=== PATIENT | female | born 1990 | race African-American/Black ===

== ENCOUNTER 2019-06-12 00:29 | Inpatient (IN) | payer OTHER ==
[2019-06-10 11:32] LABS: BASOPHILS # (AUTO) 0.1 K/uL (0.00-0.22); BASOPHILS % (AUTO) 0.7 % (0.0-2.0); EOSINOPHILS # (AUTO) 0.1 K/uL (0-0.4); EOSINOPHILS % (AUTO) 0.7 % (0.0-4.0); HEMOGLOBIN 11.7 g/dL (12.0-16.0); LYMPHOCYTES # (AUTO) 1.4 K/uL (2.5-16.5); LYMPHOCYTES % (AUTO) 18.7 % (20.5-51.1); MEAN CORPUSCULAR HEMOGLOBIN 25 pg (27-31); MEAN CORPUSCULAR HGB CONC 33 g/dL (33-37); MEAN CORPUSCULAR VOLUME 76.9 fL (80-94); MONOCYTES # (AUTO) 0.6 K/uL (0.8-1.0); MONOCYTES % (AUTO) 7.6 % (1.7-9.3); NEUTROPHILS # (AUTO) 5.6 K/uL (1.8-7.7); NEUTROPHILS % (AUTO) 72.3 % (42.2-75.2); PLATELET COUNT (AUTO) 280 K/uL (140-450); RED BLOOD CELL COUNT(AUTO) 4.68 MIL/uL (4.20-5.40); RED CELL DISTRIBUTION WIDTH 16.8 % (11.6-13.7); WHITE BLOOD COUNT (AUTO) 7.7 K/uL (4.8-10.8)
[~2019-06-12] VITALS: Ht 167.6 cm; Wt 117.9 kg
[2019-06-12] MEDS ORDERED: LACTATED RINGERS 1,000 ML IV SCH (06:27)
[2019-06-12 07:35] VITALS: BP 118/69
[2019-06-12] MEDS ORDERED: CITRIC ACID/SODIUM CITRATE 30 ML UDC ONE (07:52)
[2019-06-12] MEDS ORDERED: CITRIC ACID/SODIUM CITRATE 30 ML UDC PO SCH (08:00)
--- NOTE | 2019-06-12 08:16 | NUR ---
PATIENT HAS BEEN SCREENED AND CATEGORIZED LOW NUTRITION RISK. PATIENT WILL BE SEEN WITHIN 7 DAYS OF ADMISSION. 06/18/[address]
[2019-06-12] MEDS ORDERED: MORPHINE PRES FREE 10 MG/10 ML AMP IV ONE (08:39)
[2019-06-12] MEDS ORDERED: fentaNYL 0.05 MG/ML VIAL ONE (08:39)
[2019-06-12] MEDS ORDERED: METHYLERGONOVINE 0.2 MG/ML AMP IM PRN (09:00)
[2019-06-12] MEDS ORDERED: IBUPROFEN 800 MG TAB PO PRN (09:00)
[2019-06-12] MEDS ORDERED: HYDROcodone/APAP 5/325 MG 1 TAB TAB PO PRN (09:00)
[2019-06-12] MEDS ORDERED: HYDROmorphone 1 MG/ML AMP IVP PRN (09:00)
[2019-06-12] MEDS ORDERED: KETOROLAC 30 MG/ML VIAL IVP PRN ×2 (09:00→09:30)
[2019-06-12] MEDS: BISACODYL 5 MG TABEC PO SCH (09:00)
[2019-06-12] MEDS: CALCIUM POLYCARBOPHIL 625 MG TAB PO SCH ×2 (09:00→13:00)
[2019-06-12] MEDS ORDERED: oxyCODONE/APAP 5/325 MG 1 TAB TAB PO PRN (09:00)
[2019-06-12] MEDS ORDERED: MAGNESIUM CITRATE 300 ML BTL PO SCH (09:30)
[2019-06-12] MEDS ORDERED: ONDANSETRON 4 MG/2 ML VIAL IVP PRN ×2 (09:30)
[2019-06-12] MEDS ORDERED: NALBUPHINE 10 MG/ML AMP IVP PRN (09:30)
[2019-06-12] MEDS ORDERED: NALOXONE 0.4 MG/ML VIAL IVP PRN ×3 (09:30)
[2019-06-12] MEDS ORDERED: SIMETHICONE 80 MG TAB.CHEW PO PRN (09:30)
[2019-06-12] MEDS ORDERED: diphenhydrAMINE 50 MG/ML VIAL IVP PRN (09:30)
[2019-06-12] MEDS ORDERED: OXYTOCIN 20 UNITS/LR PREMIX 1,000 ML IV ONE ×2 (09:35→21:00)
[2019-06-12] MEDS ORDERED: ONDANSETRON 4 MG/2 ML VIAL ONE (09:41)
[2019-06-12] MEDS ORDERED: diphenhydrAMINE 50 MG/ML VIAL ONE (09:46)
[2019-06-12] MEDS ORDERED: OXYTOCIN 10 UNITS in LACTATED RINGERS 1,000 ML IV SCH (10:00)
[2019-06-12 10:41] LABS: APPEARANCE,URINE HAZY (CLEAR); BILIRUBIN,URINE 1+ (NEGATIVE); BLOOD, URINE TRACE-I (NEGATIVE); COLOR,URINE YELLOW (YELLOW); LEUKOCYTE ESTERASE ,URINE 3+ (NEGATIVE); UGLUCOSE NEGATIVE (NEGATIVE)
[2019-06-12 11:41] LABS: RAPID PLASMA REAGIN NON-REACTIVE (Non Reactiv)
[2019-06-12 11:57] LABS: NITRITE, URINE POSITIVE (NEGATIVE); RBC,URINE 0-5 /HPF (0-5)
[2019-06-12] MEDS ORDERED: HYDROmorphone PFS 2 MG/ML SYR IVP PRN (12:40)
[2019-06-12] MEDS ORDERED: DOCUSATE SOD/SENNA 50/8.6 MG 1 TAB PO SCH (21:00)
[2019-06-12] MEDS ORDERED: SENNA 8.6 MG TAB PO SCH (21:00)
[2019-06-12] MEDS ORDERED: TEMAZEPAM 15 MG CAP PO PRN (21:00)
[2019-06-12] MEDS: OXYTOCIN 20 UNITS in LACTATED RINGERS 1,000 ML IV SCH (21:30)
[2019-06-13] MEDS ORDERED: OXYTOCIN 20 UNITS/LR PREMIX 1,000 ML IV ONE (04:59)
[2019-06-13] MEDS: OXYTOCIN 20 UNITS in LACTATED RINGERS 1,000 ML IV SCH (05:00)
[2019-06-13] MEDS ORDERED: PHENYLEPHRINE 10 MG/ML VIAL ONE (08:31)
[2019-06-15] MEDS: BISACODYL 5 MG TABEC PO SCH (09:33)
[2019-06-15] MEDS: CALCIUM POLYCARBOPHIL 625 MG TAB PO SCH (09:33)
[2019-06-15] MEDS ORDERED: HYDR-5122 PO (10:02)
[2019-06-15] MEDS ORDERED: IBUP-2213 PO (10:03)
[2019-06-15] MEDS ORDERED: FERR325E14 PO (10:04)
[2019-06-15 10:39] LABS: BASOPHILS # (AUTO) 0.1 K/uL (0.00-0.22); BASOPHILS % (AUTO) 0.4 % (0.0-2.0); EOSINOPHILS # (AUTO) 0.1 K/uL (0-0.4); EOSINOPHILS % (AUTO) 0.7 % (0.0-4.0); HEMATOCRIT 30.7 % (36-48); HEMOGLOBIN 9.8 g/dL (12.0-16.0); LYMPHOCYTES # (AUTO) 1.3 K/uL (2.5-16.5); LYMPHOCYTES % (AUTO) 8.5 % (20.5-51.1); MEAN CORPUSCULAR HEMOGLOBIN 25 pg (27-31); MEAN CORPUSCULAR HGB CONC 32 g/dL (33-37); MEAN CORPUSCULAR VOLUME 77.1 fL (80-94); MONOCYTES # (AUTO) 1.3 K/uL (0.8-1.0); MONOCYTES % (AUTO) 8.7 % (1.7-9.3); NEUTROPHILS # (AUTO) 12.1 K/uL (1.8-7.7); NEUTROPHILS % (AUTO) 81.7 % (42.2-75.2); PLATELET COUNT (AUTO) 238 K/uL (140-450); RED BLOOD CELL COUNT(AUTO) 3.99 MIL/uL (4.20-5.40); RED CELL DISTRIBUTION WIDTH 16.8 % (11.6-13.7); WHITE BLOOD COUNT (AUTO) 14.8 K/uL (4.8-10.8)
[2019-06-15] MEDS ORDERED: HYDROmorphone PFS 2 MG/ML SYR IVP PRN (12:31)
== END 2019-06-15 14:15 | disposition home or self-care (01) | DRG 540 ==
LOC: MLD 06:01 → MFCC 11:20
PROVIDERS: ADMIT Obstetrics & Gynecology; ATTEND Obstetrics & Gynecology
PROC: 10D00Z1 Extraction of Products of Conception, Low, Open Approach (ICD-10-PCS; principal; 2019-06-12 08:30)
DX: O34.211 Maternal care for low transverse scar from previous cesarean delivery (principal); Z37.0 Single live birth; Z3A.39 39 weeks gestation of pregnancy
CPT/HCPCS: 36415; 51702; 81001; 85025; 86592; 86762; 86886; 86900; 86901; 87081; 87086; J0690; J1170; J1200; J1885; J2270; J2370; J2405; J2590; J3010; J7060; J7120